=== PATIENT | female | born 2000 | race American Indian/Alaskan Native ===

== ENCOUNTER 2021-02-07 13:09 | Inpatient (IN) | payer OTHER ==
[2021-02-07] MEDS ORDERED: LACTATED RINGERS 1,000 ML ONE (14:48)
[2021-02-07] MEDS ORDERED: ACETAMINOPHEN 325 MG TAB PO PRN ×2 (15:13→20:41)
[2021-02-07] MEDS ORDERED: LACTATED RINGERS 1,000 ML IV ONE (15:16)
--- NOTE | 2021-02-07 15:28 | History and Physical Report ---
History of Present Illness Date of examination: 02/07/21 Date of admission: 02/07/21 Chief complaint: Irregular contractions History of present illness: 20 year old admitted to L&D due to complaint of contractions at term. Patient had a nonreactive NST in triage and US for BPP/MARGARITA has been ordered. Patient received care at [facility] but records are not available. Patient states her LMP was 05/13/20. EDC per patient report is 02/06/21. significant for obesity. Denies any other problems. Patient reports active movement. No records or labs are available. labs were drawn upon admission. Past History Past Medical History: other (obesity) Past Surgical History: no surgical history [facility] History: denies: chlamydia, gonorrhea, hepatitis B, hepatitis C, herpes, HIV, syphilis, trichomonas Family/Genetic History: none Social history: no significant social history - Obstetrical History Expected Date of Delivery: 02/06/21 Actual Gestation: 40 Week(s) 1 Day(s) : 1 Para: 0 Hx # Term Pregnancies: 0 Number of Pregnancies: 0 Spontaneous Abortions: 0 Induced : 0 Number of Living Children: 0 Medications and Allergies Allergies Allergy/AdvReac Type Severity Reaction Status Date / Time strawberry AdvReac Hives Verified 02/07/21 13:41 Home Medications Medication Instructions Recorded Confirmed Last Taken Type One Daily Tablet 1 tab PO DAILY 02/07/21 02/07/21 02/06/21 11:00 History Active Meds: Active Medications Acetaminophen (Acetaminophen 325 Mg Tab) 650 mg PO Q4H PRN PRN Reason: Pain MILD(1-3)/Fever >100.5/TEJADA Lactated Ringer's (Lactated Ringers) 1,000 mls @ 125 mls/hr IV DIRECT MANINDER Lactated Ringer's (Lactated Ringers) 1,000 mls @ 999 mls/hr IV BOLUS ONE Stop: 02/07/21 16:16 Multivitamins/Iron/Calcium ( Tcs00-Vb Fumarate-Folic Acid Vit Tab) 1 each PO QDAY MANINDER Review of Systems All systems: negative (irregular contraction) - Vital Signs Vital signs: Vital Signs Temp Pulse Resp BP 98.4 F 123 H 18 104/62 02/07/21 13:38 02/07/21 13:38 02/07/21 13:38 02/07/21 13:38 Temp Pulse Resp BP Pulse Ox 98.4 F 106 H 18 104/62 92 02/07/21 13:38 02/07/21 15:17 02/07/21 13:38 02/07/21 13:38 02/07/21 15:17 - Physical Exam Abdomen: Positive: normal appearance, soft. Negative: distention, tenderness, guarding, rigidity Genitourinary (Female): Positive: normal external genitalia, normal perenium. Negative: perineal/vulvar lesions Vagina: Positive: normal moisture Uterus: Positive: enlarged. Negative: tender Anus/Rectum: Positive: normal perianal skin Extremities: Negative: tenderness - Obstetrical FHR comments: Normal FHR baseline rate with minimal to moderate FHR variability. No accelerations noted. (US for BPP and MARGARITA ordered). Uterine Contraction Monitor Mode: External Cervical Dilatation: 1 Cervical Effacement Percentage: 40 station: -4 Uterine Contraction Pattern: Irregular Uterine Contraction Intensity: Mild Results All other labs normal. Assessment and Plan A: at 40 weeks, 1 day gestation. Nonreactive NST. No records available. Obesity. P: Admit. Continuous EFM. US for BPP, MARGARITA, EGA/EDC, location of placenta, presentation. GBS prophylaxis when in active labor. Draw labs. IV hydration. Request records from [facility]. When records are obtained, if patient is really term, plan augmentation of labor. Consulted with Dr. Bhatt re: patient and all of above. Dr. Bhatt states she agrees with POC. Discussed POC with patient.
[2021-02-07 17:04] LABS: Basophils % (Auto) 0.2 % (0.0-1.8); Eosinophils % (Auto) 0.8 % (0.0-4.3); Hematocrit 32.3 % (30.3-42.9); Hemoglobin 10.5 gm/dl (10.1-14.3); Lymphocytes # (Auto) 1.1 K/mm3 (1.2-5.4); Lymphocytes % (Auto) 17.7 % (13.4-35.0); Mean Corpuscular HGB Conc 33 % (30-34); Mean Corpuscular Volume 96 fl (79-97); Monocytes # (Auto) 0.3 K/mm3 (0.0-0.8); Monocytes % (Auto) 5.4 % (0.0-7.3); Platelet Count 329 K/mm3 (140-440); Red Blood Count 3.38 M/mm3 (3.65-5.03); Red Cell Distribution Width 13.7 % (13.2-15.2)
[2021-02-07 17:13] LABS: Alanine Aminotransferase 15 units/L (7-56); Blood Urea Nitrogen 5 mg/dL (7-17); Calcium 8.9 mg/dL (8.4-10.2); Hemolysis Index 352
[2021-02-07 17:14] LABS: BUN/Creatinine Ratio 10
[2021-02-07] MEDS: LACTATED RINGERS 1,000 ML IV SCH (19:13)
--- NOTE | 2021-02-07 20:01 | Ultrasound Report ---
ULTRASOUND OBSTETRIC INDICATION / CLINICAL INFORMATION: EGA/EDC, location/integrity placenta, MARGARITA, present. Clinical Gestational Age (GA): 40 weeks 0 day TECHNIQUE: Transabdominal. COMPARISON: None available. FINDINGS: There is a single intrauterine . Biparietal Diameter = 10.1 cm = 41 weeks, 4 day(s). Head Circumference = 32.9 cm = 37 weeks, 3 day(s). Abdominal Circumference = 32.0 cm = 36 weeks, 0 day(s). Femur Length = 7.8 cm = 39 weeks, 5 day(s). Average Ultrasound Age (AUA) = 38 weeks, 5 day(s). Heart Rate: 152 beats per minute. Estimated Weight in grams (if calculated): 3277 Estimated Weight Growth Percentile (if calculated): 23 Position: cephalic. Cervix: closed. Length in cm (if measured): Placenta: maternal right and free of the os. Amniotic Fluid Volume: normal Amniotic Fluid Index (MARGARITA) in cm (if calculated): 10.0. Maternal Adnexa: No significant abnormality. IMPRESSION: 1. Single, living intrauterine with estimated sonographic age of 38 weeks, 5 day(s). 2. No significant sonographic abnormality. Signer Name: Bipin Galicia MD Signed: 02/07/2021 7:56 PM Workstation Name: [id number]
--- NOTE | 2021-02-07 20:01 | Ultrasound Report ---
ULTRASOUND BIOPHYSICAL PROFILE INDICATION: BPP. COMPARISON: None available. FINDINGS: BREATHING MOVEMENT = 2 GROSS BODY MOVEMENT = 2 TONE = 2 QUALITATIVE AMNIOTIC FLUID VOLUME = 2 TOTAL BIOPHYSICAL SCORE = 09/20 AMNIOTIC FLUID INDEX (cm) = 10.0 PRESENTATION: Cephalic. HEART RATE (beats per minute): 152 IMPRESSION: 1. biophysical profile = 09/20 Signer Name: Bipin Galicia MD Signed: 02/07/2021 7:57 PM Workstation Name: [id number]
[2021-02-07 20:36] LABS: Hepatitis C Virus Antibody Non-Reactive (NonReactive)
[2021-02-07] MEDS ORDERED: TERBUTALINE 1 MG/1 ML INJ SUB-Q PRN (20:41)
[2021-02-07] MEDS ORDERED: ePHEDrine SULFATE 50 MG/1 ML INJ IV PRN (20:41)
[2021-02-07] MEDS ORDERED: AMPICILLIN/NS 2 GM/100 ML 2 GM/100 ML BAG IV ONE (20:41)
[2021-02-07] MEDS ORDERED: miSOPROStol 200 MCG TAB PR PRN (20:41)
[2021-02-07] MEDS ORDERED: LIDOCAINE (2%) 20 MG/1 ML VIAL 20 ML MDV INFILTRATI ONE (20:41)
[2021-02-07] MEDS ORDERED: MINERAL OIL 30 ML ORAL LIQD PO PRN (20:41)
[2021-02-07] MEDS ORDERED: CARBOPROST TROMETHAMINE 250 MCG/1 ML INJ IM PRN (20:41)
[2021-02-07] MEDS ORDERED: LOPERAMIDE 2 MG CAP PO PRN (20:41)
[2021-02-07] MEDS ORDERED: OXYTOCIN 10 UNIT/1 ML INJ IM PRN (20:41)
[2021-02-07] MEDS ORDERED: METHYLERGONOVINE MALEATE 0.2 MG/ML VIAL IM PRN (20:41)
[2021-02-07] MEDS ORDERED: LACTATED RINGERS 1,000 ML IV SCH (20:45)
--- NOTE | 2021-02-07 20:52 | Event Note ---
US shows term gestational age, placenta free of os, and cephalic presentation. BPP 8/8; normal MARGARITA. FHR baseline 145 with minimal to moderate variability and occasional variable FHR deceleration with rapid return to baseline. Irregular mild contractions. Pitocin ordered for augmentation of labor and Ampicillin ordered for GBS prophylaxis. Patient's nurse and charge nurse notified of plan of care. Discussed POC with patient. Consulted with re: this patient and POC.
[2021-02-07] MEDS ORDERED: OXYTOCIN DRIP 30 UNITS/500 ML BAG IV SCH (21:00)
[2021-02-08] MEDS ORDERED: AMPICILLIN/NS 1 GM/50 ML 1 GM/50 ML BAG IV SCH (01:00)
[2021-02-08] MEDS ORDERED: AMPICILLIN/NS 2 GM/100 ML 2 GM/100 ML BAG IV ONE (02:34)
[2021-02-08] MEDS: OXYTOCIN DRIP 30 UNITS/500 ML BAG IV SCH ×2 (02:44→12:34)
[2021-02-08 07:02] LABS: Amphetamine Screen,Urine PRESUMPTIVE NEGATIVE; Benzodiazepines Screen,Urine PRESUMPTIVE NEGATIVE; Cannabinoid Screen,Urine PRESUMPTIVE NEGATIVE; Cocaine Screen,Urine PRESUMPTIVE NEGATIVE; Methadone Screen,Urine PRESUMPTIVE NEGATIVE; Opiate Screen,Urine PRESUMPTIVE NEGATIVE
[2021-02-08 07:09] LABS: Bacteria,Urine 2+ /HPF (Negative); Bilirubin,Urine NEG (Negative); Blood,Urine NEG (Negative); Color,Urine Amber (Yellow); Mucus,Urine 1+ /HPF; Urobilinogen,Urine < 2.0 mg/dL (<2.0)
[2021-02-08] MEDS: PRENATAL VIT27-FE FUMARATE-FOLIC ACID VIT TAB PO SCH (09:59)
--- NOTE | 2021-02-08 11:57 | Event Note ---
Date: 02/08/21 pt evaluated and pelvic 2 and pt was admitted due to non-reactive NST and prolong monitoring still with occasional variable decel. Pt was given pitocin by previous shift and same turned off during the night. Pt and her mother to bedside refuses discharge with pt currently in latent labor. Records still not available, and [facility] finally reached and records to be sent per nurse report. Will resume pitocin. discussed with pt risks, benefits and alternatives of induction including possible section for dist ress. All questions encouraged and answered.
[2021-02-08] MEDS: LACTATED RINGERS 1,000 ML IV SCH ×2 (12:35→17:55)
--- NOTE | 2021-02-08 16:17 | Event Note ---
Date: 02/08/21 pt evaluated and pelvic unchanged and pitocin at 8mu/min. Pt offered alfaro's chi balloon and informed of risks, benefits and alternatives and pt accepted. Same placed under aseptic technique with 60/60cc and then pt to be given nubain 10mg IV and an additional 20/20cc to be placed in each port. Pt remains comfortable. Expect
[2021-02-08] MEDS: NalbUPHINE 10 MG/1 ML INJ IV PRN ×2 (16:25→22:15)
--- NOTE | 2021-02-08 16:49 | Event Note ---
Date: 02/08/21 test results for COVID positive and pt and her support (mother) notified and pt placed on droplet precaution even though asymptomatic. Oxygen saturation 94- 99% at this time. Will do CXR and discussed plan of care with [facility], Dr. Aly whether to continue induction and he states yes, with the indication for induction remaining concern for fetus with non-reassuring tracing. Plan of care discussed with the family.
[2021-02-08] MEDS: fentaNYL 100 MCG/2 ML INJ IV PRN (17:52)
--- NOTE | 2021-02-08 20:12 | XRay Report ---
XR chest 1V ap INDICATION / CLINICAL INFORMATION: Covid positive COMPARISON: None available. FINDINGS: SUPPORT DEVICES: None. HEART / MEDIASTINUM: No significant abnormality. LUNGS / PLEURA: Lungs are clear. Costophrenic sulci are sharp. No pneumothorax. ADDITIONAL FINDINGS: No significant additional findings. IMPRESSION: 1. No acute findings. Signer Name: Raji Hooks MD Signed: 02/08/2021 8:08 PM Workstation Name: [id number]
[2021-02-09] MEDS: fentaNYL 100 MCG/2 ML INJ IV PRN (00:01)
--- NOTE | 2021-02-09 04:29 | Procedure Note ---
OB Delivery Note - Delivery Date of Delivery: 02/09/21 Surgeon: ARMANDO PHILLIPS Estimated blood loss: other (150 mL) - Vaginal Delivery presentation: vertex Delivery position: OA Intrapartum events: none, other(please specify) (Post-due date, NRFWB) Delivery induction: oxytocin Delivery monitor: external FHT Route of delivery: Delivery placenta: spontaneous Delivery cord: 3 umbilical vessels Episiotomy: none Delivery laceration: other ((B) periurethral) Delivery repair: vicryl Anesthesia: local - Infant A at 1 minute: 6 at 5 minutes: 8 Gender: Male
[2021-02-09] MEDS ORDERED: PROMETHAZINE 25 MG TAB PO PRN (04:31)
[2021-02-09] MEDS ORDERED: PROMETHAZINE 25 MG RECT SUPP PR PRN (04:31)
[2021-02-09] MEDS ORDERED: ONDANSETRON 4 MG/2 ML INJ IV PRN (04:31)
[2021-02-09] MEDS ORDERED: WITCH HAZEL/ GLYCERIN PAD TP PRN (04:31)
[2021-02-09] MEDS ORDERED: diphenhydrAMINE 25 MG CAP PO PRN (04:31)
[2021-02-09] MEDS ORDERED: HYDROcodone/ACETAMINOPHEN 5-325 MG TAB PO PRN (04:31)
[2021-02-09] MEDS ORDERED: MAGNESIUM HYDROXIDE (MOM) ORAL LIQD UDC PO PRN (04:31)
[2021-02-09] MEDS ORDERED: ACETAMINOPHEN 325 MG TAB PO PRN (04:31)
[2021-02-09] MEDS ORDERED: LANOLIN/ZINC/DIMETHICONE (LANSINOH) 7 GM TP PRN (04:31)
[2021-02-09 06:17] LABS: Hematocrit 31.9 % (30.3-42.9); Hemoglobin 10.4 gm/dl (10.1-14.3); Mean Corpuscular HGB Conc 33 % (30-34); Mean Corpuscular Volume 96 fl (79-97); Platelet Count 334 K/mm3 (140-440); Red Blood Count 3.33 M/mm3 (3.65-5.03); Red Cell Distribution Width 13.4 % (13.2-15.2)
[2021-02-09] MEDS: PRENATAL VIT27-FE FUMARATE-FOLIC ACID VIT TAB PO SCH (19:44)
[2021-02-09] MEDS: IBUPROFEN 600 MG TAB PO SCH (19:44)
[2021-02-10 06:18] LABS: Basophils % (Auto) 0.3 % (0.0-1.8); Eosinophils # (Auto) 0.1 K/mm3 (0.0-0.4); Eosinophils % (Auto) 0.7 % (0.0-4.3); Hematocrit 28.6 % (30.3-42.9); Hemoglobin 9.4 gm/dl (10.1-14.3); Lymphocytes # (Auto) 1.7 K/mm3 (1.2-5.4); Lymphocytes % (Auto) 22.3 % (13.4-35.0); Mean Corpuscular HGB Conc 33 % (30-34); Mean Corpuscular Volume 97 fl (79-97); Monocytes # (Auto) 0.6 K/mm3 (0.0-0.8); Monocytes % (Auto) 8.2 % (0.0-7.3); Platelet Count 275 K/mm3 (140-440); Red Blood Count 2.94 M/mm3 (3.65-5.03); Red Cell Distribution Width 13.8 % (13.2-15.2)
--- NOTE | 2021-02-10 11:17 | Progress Note ---
Assessment and Plan A: PP Day #1 Asymptomatic Anemia +Covid (Asymptomatic) P: Follow Routine Orders FeSO4 325mg PO BID Standard Covid Isolation Precautions D/C Home today per patient request RTO in 6 Weeks Subjective - Subjective Date of service: 02/10/21 Patient reports: appetite normal, voiding normally, pain well controlled, flatus, bowel movement, ambulating normally [place]: doing well, bottle feeding Objective - Vital Signs Latest vital signs: Vital Signs Temp Pulse Resp BP BP Pulse Ox 02/10/21 08:36 98.0 F 80 20 110/77 99 02/10/21 00:00 98.4 F 78 18 117/76 02/09/21 21:03 98.6 F 92 H 18 117/86 98 02/09/21 18:30 98.2 F 99 H 19 118/75 99 02/09/21 13:05 97.9 F 91 H 18 115/77 98 Intake and Output 02/09/21 02/10/21 02/10/21 22:59 06:59 14:59 Intake Total 1200 600 240 Output Total 350 Balance 850 600 240 Intake: Oral 480 240 Intake, Free Water 720 600 Output: Urine 350 Void 350 Other: Total, Intake Amount 480 240 Total, Output Amount 350 # Voids Void 3 1 1 - Exam Breasts: Present: normal Cardiovascular: Present: Regular rate Lungs: Present: Clear to auscultation, Normal air movement Abdomen: Present: normal appearance, soft, normal bowel sounds Uterus: Present: normal, firm, fundal height below umbilicus Extremities: Present: normal - Labs Labs: Abnormal lab results 02/10/21 Range/Units 05:55 RBC 2.94 L (3.65-5.03) M/mm3 Hgb 9.4 L (10.1-14.3) gm/dl Hct 28.6 L (30.3-42.9) % [place] % (Auto) 8.2 H (0.0-7.3) %
--- NOTE | 2021-02-10 11:18 | Discharge Summary ---
Providers - Providers Date of Admission: 02/07/21 20:41 Date of discharge: 02/10/21 Attending physician: RUY FRANCIS MD Primary care physician: RUY FRANCIS MD Hospitalization Reason for admission: induction of labor Delivery: Episiotomy: none Laceration: 1st degree Other procedures: none complications: none Discharge diagnosis: IUP at term delivered baby: male Condition at discharge: Good Disposition: 01 HOME / SELF CARE / HOMELESS Plan - Provider Discharge Summary Activity: routine, no sex for 6 weeks, no heavy lifting 4 weeks, no strenuous exercise Diet: routine Instructions: routine Additional instructions: [] Smoking cessation referral if applicable(refer to patient education folder for contact #) [] Refer to [facility]'s [facility] Booklet Call your doctor immediately for: * Fever > 100.5 * Heavy vaginal bleeding ( >1 pad per hour) * Severe persistent headache * Shortness of breath * Reddened, hot, painful area to leg or breast * Drainage or odor from incision. * Keep incision clean and dry at all times and follow doctor's instructions regarding bathing/showering - Follow up plan Follow up: RUY FRANCIS MD [Primary Care Provider] - 6 Weeks
[2021-02-10] MEDS ORDERED: FERROUS SULFATE 325 MG TAB PO SCH (12:00)
[2021-02-10 12:46] VITALS: BP 113/78
== END 2021-02-10 12:38 | disposition home or self-care (01) | DRG 805 ==
LOC: TRG 13:09 → APU 13:22 → LD 15:36 → TRG 20:41 → OB 02-09 06:23
PROVIDERS: ADMIT Obstetrics & Gynecology; ATTEND Obstetrics & Gynecology
PROC: 10E0XZZ Delivery of Products of Conception, External Approach (ICD-10-PCS; principal; 2021-02-09)
PROC: 3E033VJ Introduction of Other Hormone into Peripheral Vein, Percutaneous Approach (ICD-10-PCS; 2021-02-09)
PROC: 0UQMXZZ Repair Vulva, External Approach (ICD-10-PCS; 2021-02-09)
DX: O98.52 Other viral diseases complicating childbirth (principal); U07.1 COVID-19; Z37.0 Single live birth; O99.214 Obesity complicating childbirth; O71.82 Other specified trauma to perineum and vulva; O90.81 Anemia of the puerperium; Z3A.40 40 weeks gestation of pregnancy; Z91.018 Allergy to other foods
CPT/HCPCS: 36415; 59025; 71045; 76816; 76819; 80053; 80307; 81001; 84132; 85025; 85027; 86592; 86706; 86762; 86803; 86850; 86900; 86901; 87806; G0378; J0290; J2300; J2590; J3010; J7120; U0003